=== PATIENT | male | born 1955 | race Caucasian/White ===

== ENCOUNTER 2017-08-16 06:44 | Day surgery (SDC) | payer BC ==
[~2017-08-16] VITALS: Ht 172.7 cm; Wt 81.6 kg
[2017-08-16] VITALS (7 sets, daily range): BP systolic 110–127; BP diastolic 67–82
[~2017-08-16 06:44] MED LIST: NKM
--- NOTE | 2017-08-16 06:50 | Anethesia Preoperative Eval ---
Anesthesia Pre-op PMH/ROS General Date of Evaluation: Aug 16, 2017 Time of Evaluation: 06:49 Anesthesiologist: kena ASA Score: ASA 3 Mallampati Score Class I : Soft palate, uvula, fauces, pillars visible Class II: Soft palate, uvula, fauces visible Class III: Soft palate, base of uvula visible Class IV: Only hard plate visible Mallampati Classification: Class II Surgeon: ronaldo Diagnosis: hx/o colon polyps Surgical Procedure: colonoscopy Anesthesia History: none Social History: smoking - former smoker Family History: no anesthesia problems Allergies: Coded Allergies: No Known Allergies (Unverified , 08/16/17) Medications: see eMAR Past Medical History Gastrointestinal/Genitourinary: Reports: other - prostate cancer, kidney stones Anesthesia Pre-op Phys. Exam Physician Exam Last Vital Signs Date Time Temp Pulse Resp B/P (MAP) Pulse Ox O2 Delivery O2 Flow Rate FiO2 08/16/17 07:28 97.9 82 17 110/67 95 Room Air 97.9 Constitutional: NAD Neurologic: CN 2-12 intact Cardiovascular: RRR Respiratory: CTA Gastrointestinal: S/NT/ND Airway Exam Mallampati Score: Class II MO: full Neck: short TMD: 2fb Teeth: missing Anesthesia Pre-op A/P Studies Pre-op Studies: EKG - nsr Risk Assessment & Plan Assessment: asa3 Plan: mac Status Change Before Surgery: No Pre-Antibiotics Drug: HAL Shepherd Aug 16, 2017 06:50
[2017-08-16] MEDS ORDERED: ASPIR 8181 MG ORAL (07:30)
[2017-08-16] MEDS ORDERED: TAMSULOSIN HCL0.4 MG ORAL (07:30)
[2017-08-16] MEDS ORDERED: Propofol 200mg/20ml IV ONE (08:30)
[2017-08-16] MEDS ORDERED: Lidocaine 1% MPF 10mg/ml 5ml ONE (08:30)
[2017-08-16] MEDS ORDERED: Midazolam 2mg/2ml Inj IVP PRN (09:00)
[2017-08-16] MEDS ORDERED: DiphenhydrAMINE 50mg/ml Inj IVP PRN (09:00)
[2017-08-16] MEDS ORDERED: Atropine Inj 1mg/10ml Syr IV PRN (09:00)
[2017-08-16] MEDS ORDERED: fentaNYL 100 mcg/2 mL IV PRN (09:00)
--- NOTE | 2017-08-16 09:02 | Pre-Procedure Note/Attestation ---
Pre-Procedure Note/Attestation Complete Prior to Procedure Planned Procedure: not applicable Procedure Narrative: colonoscopy Indications for Procedure Pre-Operative Diagnosis: h/o colon polyps Attestation I attest that I discussed the nature of the procedure; its benefits; risks and complications; and alternatives (and the risks and benefits of such alternatives ), prior to the procedure, with the patient (or the patient's legal public service representative). I attest that, if there was a reasonable possibility of needing a blood transfusion, the patient (or the patient's legal public service representative) was given the [facility] standardized written summary, pursuant to the [place] Blood Safety Act ([place] Health and Safety Code # 1645, as amended). I attest that I re-evaluated the patient just prior to the surgery and that there has been no change in the patient's H&P, except as documented below: DORA RAO Aug 16, 2017 09:02
--- NOTE | 2017-08-16 09:03 | Short Stay Surgery H&P ---
History of Present Illness History of Present Illness Chief Complaint see recent office note HPI Riley Reyes is a 61 year old male who was admitted on for Hx Of Colon Polyps Patient History Allergies: Coded Allergies: No Known Allergies (Unverified , 08/16/17) PAST MEDICAL HISTORY: Past Surgeries: Social History: Medication History Scheduled Aspirin* (Aspir 81*), 81 MG ORAL DAILY, (Reported) Tamsulosin Hcl (Tamsulosin Hcl*), 0.4 MG ORAL BEDTIME, (Reported) Physical Exam Vital Signs Last Vital Signs Date Time Temp Pulse Resp B/P (MAP) Pulse Ox O2 Delivery O2 Flow Rate FiO2 08/16/17 07:28 97.9 82 17 110/67 95 Room Air 97.9 Plan Attestation Are the patient's medical conditions optimized for surgery? DORA RAO Aug 16, 2017 09:02
--- NOTE | 2017-08-16 09:20 | Short Stay Surgery H&P ---
History of Present Illness History of Present Illness Chief Complaint h/o colon polyps HPI Riley Reyes is a 61 year old male who was admitted on for Hx Of Colon Polyps Patient History Allergies: Coded Allergies: No Known Allergies (Unverified , 08/16/17) PAST MEDICAL HISTORY: (1) Prostate cancer (2) Diarrhea (3) Colon polyp (4) BPH (benign prostatic hyperplasia) Past Surgeries: Social History: Medication History Scheduled Aspirin* (Aspir 81*), 81 MG ORAL DAILY, (Reported) Tamsulosin Hcl (Tamsulosin Hcl*), 0.4 MG ORAL BEDTIME, (Reported) Review of Systems Cardiovascular: Reports: no symptoms Respiratory: Reports: no symptoms Skeletal: Reports: no symptoms Gastrointestinal: Reports: see HPI, other Genitourinary: Reports: see HPI Neurologic: Reports: no symptoms Endocrine: Reports: no symptoms Hematologic: Reports: no symptoms Physical Exam Vital Signs Last Vital Signs Date Time Temp Pulse Resp B/P (MAP) Pulse Ox O2 Delivery O2 Flow Rate FiO2 08/16/17 07:28 97.9 82 17 110/67 95 Room Air 97.9 Skin: normal HENT: normal Heart: normal Lungs: normal Abdomen: normal Extremities: normal Plan Plan of Care colonoscopy Final Diagnosis: Attestation Are the patient's medical conditions optimized for surgery? Attestation Response: yes DORA RAO Aug 16, 2017 09:19
--- NOTE | 2017-08-16 09:23 | Endoscopy Procedure Note ---
Endoscopy Procedure Note General Indication for Procedure: colon polyps Procedures Performed: colonoscopy Operative Findings/Diagnosis: colon polyp Specimen: yes Pt Tolerated Procedure Well: Yes Estimated Blood Loss: none Anesthesia Anesthesiologist: marlon Anesthesia: MAC Inserted Devices Implant(s) used?: No Quality Quality of Bowel Preparation: Good Did scope reach the cecum?: Yes Was there any complications?: No GI Core Measures 50 yrs or older w/o bx or poly: No 10yrs. F/U not recommended: Yes If not recommended, why?: Above average risk 10 yrs. F/U needed: Yes 18 years or older w/prev. colo: Yes <3yrs. since last colonoscopy: No DORA RAO Aug 16, 2017 09:23
--- NOTE | 2017-08-16 10:29 | Immediate Post-Op Evaluation ---
Immediate Post-Op Evalulation Immediate Post-Op Evalulation Procedure: colonoscopy Date of Evaluation: Aug 16, 2017 Time of Evaluation: 09:36 IV Fluids: 650ml 0.9ns Blood Products: none Estimated Blood Loss: negligible Blood Pressure Systolic: 111 Blood Pressure Diastolic: 75 Pulse Rate: 87 Respiratory Rate: 18 O2 Sat by Pulse Oximetry: 98 Temperature (Fahrenheit): 97.5 Pain Score (1-10): 0 Nausea: No Vomiting: No Complications none Patient Status: awake, reacts, patent Hydration Status: adequate Drug: HAL Shepherd Aug 16, 2017 10:29
--- NOTE | 2017-08-16 10:31 | 48 Hour Post Anesthesia Eval ---
Post Anesthesia Evaluation Procedure: colonoscopy Date of Evaluation: Aug 16, 2017 Time of Evaluation: 09:38 Blood Pressure Systolic: 119 0: 78 Pulse Rate: 87 Respiratory Rate: 18 Temperature (Fahrenheit): 97.5 O2 Sat by Pulse Oximetry: 100 Airway: patent Nausea: No Vomiting: No Pain Intensity: 0 Hydration Status: adequate Cardiopulmonary Status: stable Mental Status/LOC: patient returned to baseline Post-Anesthesia Complications: none Follow-up care needed: N/A HAL TIAN Aug 16, 2017 10:31
[2017-08-16 10:50] LABS: EOSINOPHILS % (AUTO) 1.6 % (0.0-3.0); HEMATOCRIT 53.6 % (42.0-52.0); LYMPHOCYTES % (AUTO) 12.7 % (20.0-45.0); MEAN CORPUSCULAR VOLUME 87 FL (80-99); MONOCYTES % (AUTO) 5.2 % (1.0-10.0); NEUTROPHILS % (AUTO) 79.5 % (45.0-75.0); PLATELET COUNT 172 K/UL (150-450); RED BLOOD COUNT 6.14 M/UL (4.70-6.10); RED CELL DISTRIBUTION WIDTH 11.3 % (11.6-14.8); WHITE BLOOD COUNT 9.5 K/UL (4.8-10.8)
[2017-08-16 11:01] LABS: ALANINE AMINOTRANSFERASE 45 U/L (12-78); ALBUMIN 4.1 G/DL (3.4-5.0); ALBUMIN/GLOBULIN RATIO 1.2 (1.0-2.7); ALKALINE PHOSPHATASE 104 U/L (46-116); ANION GAP 9 mmol/L (5-15); ASPARTATE AMINO TRANSFERASE 21 U/L (15-37); BILIRUBIN,TOTAL 0.8 MG/DL (0.2-1.0); BLOOD UREA NITROGEN 24 mg/dL (7-18); CALCIUM 9.3 MG/DL (8.5-10.1); CARBON DIOXIDE 25 MMOL/L (21-32); CHLORIDE 103 MMOL/L (98-107); CREATININE 1.3 MG/DL (0.55-1.30); POTASSIUM 4.9 MMOL/L (3.5-5.1); SODIUM 137 MMOL/L (136-145)
[2017-08-16 11:10] LABS: HEMOGLOBIN 18.7 G/DL (14.2-18.0)
--- NOTE | 2017-08-16 15:00 | Procedure Note ---
DATE OF PROCEDURE: 08/16/2017 SURGEON: Ramon Abdullahi M.D. PROCEDURE: Colonoscopy with biopsy. ANESTHESIA: Per Dr. Matson. INSTRUMENT: Olympus adult flexible colonoscope. INDICATION: History of colon polyps and history of prostate cancer. The procedure, risks, benefits, and possible consequences, including hemorrhage, aspiration, perforation and infection, and alternative treatments, were explained to the patient/legal guardian by Dr. Ramon Abdullahi and the patient/legal guardian understood and accepted these risks. PROCEDURE IN DETAIL: After informed consent was obtained and the patient was adequately sedated, first rectal exam was performed, which was normal. Then, the scope was advanced from the rectum into the cecum and then subsequently into terminal ileum. Quality of prep was good. Examination of the cecum was somewhat limited. There was semi-solid stool in the cecum covering about 25% to 30% of the cecum. The patient had evidence of one diminutive polyp in the ascending colon, which was removed with the cold biopsy forceps technique. The patient had evidence of diverticulosis both in the right and left colon, mild. There was no further polyp seen in this colonoscopic examination. Retroflexion of rectum showed evidence of medium-sized internal hemorrhoids. SUMMARY OF FINDINGS: 1. One colonic polyp removed. 2. Diverticulosis. 3. Internal hemorrhoids. RECOMMENDATIONS: 1. Follow up biopsy results and treat accordingly. 2. Recommend repeat colonoscopy in five years. Ramon Abdullahi M.D. DR: WEN JOB#: [id number] CC: ELLIE
--- NOTE | 2017-08-18 20:10 | Cardiology Report ---
APPROVED REPORT EKG Measurement Heart [id number] Normal sinus rhythm Normal ECG
== END 2017-08-16 10:40 | disposition home or self-care (01) ==
LOC: GAS 06:44
DX: K63.5 Polyp of colon (principal); K57.30 Diverticulosis of large intestine without perforation or abscess without bleeding; K64.8 Other hemorrhoids; Z85.46 Personal history of malignant neoplasm of prostate; Z79.82 Long term (current) use of aspirin; Z87.442 Personal history of urinary calculi; Z87.891 Personal history of nicotine dependence
CPT/HCPCS: 36415; 45380; 80053; 82378; 85025; 93005; J2704; 94003; 94150

== ENCOUNTER 2020-05-07 10:32 | Outpatient (CLI) | payer MEDICARE, OTHER ==
[~2020-05-07 10:32] MED LIST changes: +ASPIR 8181 MG ORAL; +TAMSULOSIN HCL0.4 MG ORAL
--- NOTE | 2020-05-07 11:58 | General Progress Note ---
Subjective ROS Limited/Unobtainable: Yes Allergies: Coded Allergies: No Known Allergies (Unverified , 08/16/17) Objective General Appearance: alert EENT: normal ENT inspection Neck: supple Cardiovascular: normal rate Respiratory/Chest: decreased breath sounds Abdomen: normal bowel sounds, non tender, soft Extremities: non-tender Assessment/Plan Assessment/Plan: 2017 SUMMARY OF FINDINGS: 1. One colonic polyp removed. 2. Diverticulosis. 3. Internal hemorrhoids. repeat colon 2022 marco antonio bone 145 daily Ramon Abdullahi MD May 07, 2020 11:58
== END 2020-05-07 12:32 | disposition home or self-care (01) ==
LOC: PAN 10:32
DX: K63.5 Polyp of colon (principal); K57.90 Diverticulosis of intestine, part unspecified, without perforation or abscess without bleeding; K64.8 Other hemorrhoids
CPT/HCPCS: G0463